=== PATIENT | female | born 1960 ===

== ENCOUNTER 2020-10-12 07:41 | Day surgery (SDC) | payer OTHER | END 2020-10-12 18:00 | disposition home or self-care (01) | LOC: AMB-ENDOS 07:41 | PROVIDERS: ATTEND Colon & Rectal Surgery | DX: K57.32 Diverticulitis of large intestine without perforation or abscess without bleeding (principal); K64.1 Second degree hemorrhoids; K58.8 Other irritable bowel syndrome; Z20.822 Contact with and (suspected) exposure to COVID-19 ==

== ENCOUNTER 2021-06-16 05:55 | Day surgery (SDC) | payer OTHER | END 2021-06-16 11:45 | disposition home or self-care (01) | LOC: AMB-ENDOS 05:55 | PROVIDERS: ATTEND Colon & Rectal Surgery | DX: K62.89 Other specified diseases of anus and rectum (principal); K44.9 Diaphragmatic hernia without obstruction or gangrene ==